=== PATIENT | female | born 1995 | race Caucasian/White ===

== ENCOUNTER 2025-01-19 23:58 | Emergency (ER) | payer OTHER, SELFPAY ==
[2025-01-20 00:01] VITALS: BP 90/54; PULSE 91; RESP 18; TEMP 36.8; O2SAT 98; BMI 28.5
--- NOTE | 2025-01-20 00:30 | EKG12_ITS ---
Test Reason : CHEST PAIN Blood Pressure : */* mmHG Vent. Rate : 87 BPM Atrial Rate : 87 BPM P-R Int : 162 ms QRS Dur : 74 ms QT Int : 362 ms P-R-T Axes : 62 58 24 degrees QTcB Int : 435 ms Normal sinus rhythm with sinus arrhythmia Normal ECG Confirmed by Omid Sarkar ([id number]), editor dictionary BROOKE GODFREY ([id number]) on 01/23/2025 1:07:02 PM Referred By: BRANDO Confirmed By: Omid Sarkar
[2025-01-20] MEDS: Lidocaine 2% Viscous15 ML UDC 15 ML PO (00:39)
[2025-01-20] MEDS: 0.9% Normal Saline (1000mL) 1,000 ML 999 ML IV (00:39)
[2025-01-20 00:40] VITALS: BP 90/58; PULSE 107; RESP 17; O2SAT 97
[2025-01-20 00:50] LABS: Hematocrit 32.9 % (37-47); Hemoglobin 11.4 g/dL (12.0-15.0); Immature Granulocytes Count 0.050 X10^3/uL (0.0-0.0); Mean Corp Hgb Conc 34.7 g/dL (32-36); Mean Corpuscular Volume 91.4 fL (81-99); Mean Platelet Vol. 9.8 fl (6.2-12.0); NRBC Flagged by Analyzer 0 % (0-5); Platelet Count 144 K/mm3 (150-450); RBC Distribution Width CV 13.0 % (11.6-14.6); RBC Distribution Width SD 42.7 fl (35.1-43.9); Red Blood Count 3.60 M/mm3 (4.2-5.4); White Blood Count 8.2 K/mm3 (4.4-11.0)
[2025-01-20] MEDS: Famotidine 200 MG/20 ML MDV 20 MG in 0.9% Normal Saline (Pres. free 8 ML 300 MG IV (00:51)
[2025-01-20 01:15] LABS: D-Dimer Quantitative (DVT/PE) 1.32 FEU/ug/m (0.27-0.49)
[2025-01-20 01:17] LABS: Troponin T High Sensitivity < 6 ng/L (<=14)
[2025-01-20 01:20] LABS: AST(SGOT) 19 U/L (<=31); Alanine Aminotransfer ALT/SGPT 14 U/L (<=34); Albumin, Serum 3.4 g/dL (3.5-5.0); Alkaline Phosphatase 63 U/L (35-104); Anion Gap 11 (5-15); BUN 13 mg/dL (4-19); BUN/Creat Ratio 24.2 RATIO (10-20); Bilirubin, Direct 0.15 mg/dL (0.00-0.30); Calcium,Total 8.7 mg/dL (7.6-11.0); Carbon Dioxide 19.4 mmol/L (21.0-32.0); Chloride 106 mmol/L (98-108); Estimated Creatinine Clearance 148.68 ml/min (50-250); Globulin 2.7 g/dL (2.2-4.2); Glucose 81 mg/dL (70-99); Lipase 28 U/L (13-75); Magnesium 2.1 mg/dL (1.5-2.2); Potassium 3.6 mmol/L (3.3-5.1)
--- NOTE | 2025-01-20 01:20 | CT_ITS ---
PROCEDURE: CTA CHEST W/WO CONTRAST 01/20/2025 REASON FOR EXAM: CHEST PAIN WITH ELEVATED D-DIMER TECHNIQUE: Procedure Code: [id number] Modality: CT Procedure: CTA CHEST W/WO CONTRAST Multiplanar Sagittal and Coronal images were obtained. CONTRAST: Isovue-370 VOLUME: 100 mL One or more dose reduction techniques were used (e.g., Automated exposure control, adjustment of the mA and/or kV according to patient size, use of iterative reconstruction technique). RADIATION DOSE SUMMARY: CTDlvol: 26.3 mGy DLP: 630 mGycm COMPARISON: None. FINDINGS: Normal enhancement of the main pulmonary artery and right and left pulmonary arteries. Normal enhancement of the bilateral peripheral pulmonary arteries. There is no demonstrated pulmonary embolism. Normal thoracic aorta and visualized great vessels. There is no demonstrated aortic dissection. Normal heart and pericardium. Normal mediastinum. Normal hilar regions. Minimal bilateral basilar atelectatic pulmonary changes. Normal visualized trachea and bronchi. The remaining lungs are well expanded. Normal pulmonary parenchyma. Normal pleura. Normal chest wall structures. Normal osseous structures. Normal visualized upper abdomen. CT/CTA Chest W/WO Contrast IMPRESSION: No demonstrated pulmonary embolism or arterial dissection. Reading [facility] [id number]
--- NOTE | 2025-01-20 01:23 | PCA ---
no old ekg
[2025-01-20 02:00] VITALS: BP 87/49; PULSE 95; RESP 19; O2SAT 100
--- NOTE | 2025-01-20 02:24 | EDS_ITS ---
HPI History of Present Illness Chief Complaint: Chest Pain Informant: patient and spouse/S.O. Narrative Narrative: Patient is a G5, P3 with 1 spontaneous miscarriage who is roughly 34 weeks . She states that this morning she noticed a vague pain in the left mid to lower chest/upper abdomen. She states that throughout the day it was present but was not intolerable. She reports this evening when she lied down to go to bed she felt like the pain worsened. She states that she noticed that the pain also seem to worsen with breathing. She states there is been no trauma or excessive activity. She denies any fevers or chills or cough. She states that the pain worsens with inspiration lying flat and motion. She denies any vaginal bleeding or discharge. She states she could not sleep based on the persistent/worsening pain and therefore comes in for evaluation. [facility] Medical History Vaginal delivery Home Medications ?Medication ?Instructions ?Recorded ?Last Taken ?Type vit no.37-iron fum 29 mg 1 tab PO DAILY 01/19 Unknown History iron-folic acid 1 mg chewable tablet (PreNata) Allergy/AdvReac Type Severity Reaction Status Date / Time No Known Allergies Allergy Verified 01/19/25 23:59 Surgical History (Updated 01/20/25 @ 00:01 by Michaela Garcia) H/O dilation and curettage Social History Smoking Status: Never smoker ROS ROS ED Constitutional Constitutional ED: Denies chills or fever(s) Eyes Eyes: Denies blurry vision or change in vision ENT ENT ED: Denies sore throat Cardiovascular Cardiovascular: Reports chest pain; Denies palpitations or racing heartbeat Respiratory/Chest Respiratory/Chest: Denies cough or dyspnea Gastrointestinal Gastrointestinal: Denies abdominal pain, diarrhea, nausea or vomiting Genitourinary Genitourinary ED: Denies dysuria or hematuria Musculoskeletal Musculoskeletal: Reports back pain; Denies myalgias Integumentary Denies rash Neurologic Neurologic: Denies headache(s) Hematologic/Lymphatic Hematologic/Lymphatic: Denies easy bleeding or easy bruising EXAM Physical Exam Const Vital Signs: 01/20/25 00:01 01/20/25 00:01 01/20/25 00:40 Temperature 98.3 F Temperature Source Temporal Pulse Rate 91 107 H Respiratory Rate 18 17 Respiratory Effort Normal Non-Labored Blood Pressure 90/54 L 90/58 L Blood Pressure Mean 66 68 Pulse Ox 98 97 Oxygen Delivery Method Room Air Room Air 01/20/25 02:00 01/20/25 03:00 01/20/25 03:40 Temperature 98 F Temperature Source Pulse Rate 95 85 87 Respiratory Rate 19 H 18 16 Respiratory Effort Blood Pressure 87/49 L 95/63 95/59 L Blood Pressure Mean 61 73 71 Pulse Ox 100 98 99 Oxygen Delivery Method Room Air Room Air Positive well nourished and well developed General Appearance ED: well developed; Negative for pallor HEENT HEENT Narrative: Normocephalic atraumatic Eyes PERRL and EOMs intact bilaterally General Eye ED: Negative for scleral icterus Neck supple and no JVD Chest Wall Chest Narrative: No bony deformity or subcutaneous emphysema noted No overlying soft tissue changes to the chest wall to suggest trauma or infection Resp normal respiratory effort and clear to auscultation bilaterally Resp Narrative: No nasal flaring retractions tachypnea or accessory muscle use Cardio regular rate and regular rhythm Rate: other Other Details: Heart is regular rate and rhythm without murmurs rubs or gallops Radial and carotid pulses are equal and symmetric No carotid bruit GI non-tender GI Narrative: Abdomen is gravid with fundus consistent with reported gestational age No voluntary guarding or rigidity. No peritoneal signs. Auscultation: normoactive bowel sounds Palpation: soft Back/Spine no CVA tenderness Extremity normal to inspection Extremity Narrative: No asymmetric edema no pitting edema negative Homans' sign bilaterally Neuro oriented x3, CN's II-XII intact bilaterally and no sensory deficits noted Sensorium / Orientation: alert Motor Exam: strength 5/5 throughout Psych Mood & Affect: anxious Skin no rashes or lesions noted and no wounds General Skin Exam: Negative for jaundice or pallor MDM MDM MDM Narrative Medical decision making narrative: Patient arrived to the ER with stable vitals. She reported a vague left mid to lower chest discomfort that been present for multiple hours. She is low risk for acute coronary syndrome but in order to assess for this an EKG was obtained as well as troponin. EKG revealed no sign of cardiac dysrhythmia or ischemia and troponin was less than 6 indicating no sign of ACS or myocarditis. With the pain near the lower portion of the chest/upper abdomen there is also potential this could be pancreatitis or biliary colic. Lipase is normal going against pancreatitis and liver enzymes are also normal going against a biliary issue. The patient reported pain was worse with inspiration and she does not have a history of DVT/PE but her status does make her hypercoagulable. As vitals are stable and EKG does not show tachycardia or S1Q3T3 elected to start with a D-dimer. The D-dimer was elevated which I feel is most likely related to her status but in order to ensure there is no sign of PE or dissection and a CTA of the chest was obtained. CTA revealed no acute findings such as PE dissection pneumonia or pneumothorax. Therefore at this time as the patient's workup reveals no sign of cardiac dysrhythmia acute ischemia myocarditis PE or dissection or lung pathology such as pneumonia or pneumothorax I do not feel there is need for further workup or admission and patient is otherwise safe for discharge. History & Record Review Discussion w/independent historian: Patient and Significant other Lab Data Attestation: I reviewed the patient's lab results. Labs: Laboratory Results - last 24 hr 01/20/25 00:04 WBC 8.2 RBC 3.60 L Hgb 11.4 L Hct 32.9 L MCV 91.4 MCH 31.7 MCHC 34.7 RDW Std Deviation 42.7 RDW Coeff of Keshawn 13.0 Plt Count 144 L MPV 9.8 Immature Gran % (Auto) 0.600 Neut % (Auto) 63.6 Lymph % (Auto) 27.2 Sherman % (Auto) 7.1 Eos % (Auto) 1.1 Baso % (Auto) 0.4 Absolute Neuts (auto) 5.2 Absolute Lymphs (auto) 2.23 Nucleated RBC % 0 D-Dimer Quant (PE/DVT) 1.32 H* Sodium 137 Potassium 3.6 Chloride 106 Carbon Dioxide 19.4 L Anion Gap 11 BUN 13 Creatinine 0.53 L Estim Creat Clear Calc 148.68 Est GFR (MDRD) Non-Af 128 BUN/Creatinine Ratio 24.2 H Glucose 81 Calcium 8.7 Magnesium 2.1 Total Bilirubin 0.24 Direct Bilirubin 0.15 AST 19 ALT 14 Alkaline Phosphatase 63 Troponin T High Sens < 6 Total Protein 6.1 Albumin 3.4 L Globulin 2.7 Lipase 28 Radiography Diagnostic Testing: Clinical Impression(s) from Imaging Studies Chest CTA 01/20/25 01:20 IMPRESSION: No demonstrated pulmonary embolism or arterial dissection. [facility] T[facility] Chief Complaint: Chest Pain ED Provider: Farooq Celeste Dx/Rx/DC Orders Clinical Impression: Nonspecific chest pain, Instructions: ED Chest Pain, Uncertain Cause Prescriptions: No Action PreNata 29 mg iron- 1 mg tablet,chewable 1 tab PO DAILY Primary Care Provider: John Sow Referrals: John Sow DO [Primary Care Provider] - Activity Restrictions/Additional Instructions: Your workup today showed no sign of active heart damage or abnormal heart rhythm. Your CT scan confirmed there is no blood clot or tear or infection. Please follow-up with your family doctor for further evaluation and return to the ER should you have any further concerns or worsening of symptoms Print Language: Chinese Disposition Disposition: Home, Self Care Discharge Date/Time: 01/20/25 03:46
[2025-01-20 03:00] VITALS: BP 95/63; PULSE 85; RESP 18; O2SAT 98
[2025-01-20 03:40] VITALS: BP 95/59; PULSE 87; RESP 16; TEMP 36.6; O2SAT 99
== END 2025-01-20 03:46 | disposition home or self-care (01) ==
PROVIDERS: Emergency Provider Emergency Medicine; PCP Family Medicine; Visit Provider Emergency Medicine
DX: O99.891 Other specified diseases and conditions complicating pregnancy (principal); R07.9 Chest pain, unspecified; Z3A.34 34 weeks gestation of pregnancy
CPT/HCPCS: 71275; 80048; 80076; 83690; 83735; 84484; 85025; 85379; 93005; 96361; 96374; 99285; Q9967; A4216